=== PATIENT | female | born 1980 | race Caucasian/White ===

== ENCOUNTER 2017-06-06 16:28 | Emergency (ER) | payer OTHER, BC ==
[~2017-06-06] VITALS: Ht 162.6 cm; Wt 112.5 kg
[~2017-06-06 16:28] MED LIST: IBUP600T26 PO; PERC5TAB12 PO; PREN0.01 PO
[2017-06-06 16:49] VITALS: BP 158/72; PULSE 106; RESP 16; TEMP 98.6; O2SAT 98
[2017-06-06] MEDS ORDERED: VIIB40TA PO (17:51)
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
[2017-06-06] MEDS ORDERED: IBUP1TAB7 PO (18:32)
[2017-06-06] MEDS ORDERED: ROBA500T PO (18:32)
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
== END 2017-06-06 19:33 | disposition home or self-care (01) ==
LOC: PHEFT 16:28
DX: S13.4XXA Sprain of ligaments of cervical spine, initial encounter (principal); V43.52XA Car driver injured in collision with other type car in traffic accident, initial encounter
CPT/HCPCS: 72125; 99283